=== PATIENT | female | born 1940 | race Caucasian/White ===

== ENCOUNTER 2025-07-02 11:28 | Outpatient (CLI) | payer MEDICARE | END 2025-07-02 23:59 | disposition home or self-care (01) | LOC: WOU 11:28 | PROVIDERS: ATTEND Podiatrist Foot & Ankle Surgery | DX: E11.42 Type 2 diabetes mellitus with diabetic polyneuropathy (principal); M79.672 Pain in left foot; M79.671 Pain in right foot; L60.2 Onychogryphosis; L84 Corns and callosities; I10 Essential (primary) hypertension; Z79.84 Long term (current) use of oral hypoglycemic drugs | CPT/HCPCS: 11721; 11055; G0463 ==